=== PATIENT | female | born 1955 ===

== ENCOUNTER 2019-06-11 07:22 | Inpatient (IN) | payer SELFPAY ==
[~2019-06-11] VITALS: Ht 165.1 cm; Wt 77.1 kg
--- NOTE | 2019-06-11 07:32 | Emergency Room Report ---
History of Present Illness General Chief Complaint: Altered Level of Consciousness Source: EMS Present Illness HPI Please note history limited to patient's altered mental status 63-year-old female, unknown past medical history, unknown surgical history, presents with altered mental status unknown start time, unknown aggravating or alleviating factors, patient was found sitting outside a motel, patient arousable, answers some questions but otherwise gives no real history, review of systems cannot be obtained secondary to patient's altered mental status. Allergies: Coded Allergies: UNABLE TO ASSESS (Unverified , 06/11/19) Patient History Limited by: medical condition - Altered mental status Past Medical History: see triage record Past Surgical History: unable to obtain Pertinent Family History: unable to obtain Social History Narrative When asked if she does alcohol drugs or tobacco she denies, however patient is currently altered Reviewed Nursing Documentation: PMH: Agreed; PSxH: Agreed Nursing Documentation-PMH Past Medical History Deferred: Patient Unconscious Past Medical History: No Stated History Review of Systems All Other Systems: limited - unable to obtain secondary to patient's altered mental status Physical Exam Vital Signs Date Time Temp Pulse Resp B/P (MAP) Pulse Ox O2 Delivery O2 Flow Rate FiO2 06/11/19 07:23 97.9 79 18 142/106 (118) 100 Room Air Sp02 EP Interpretation: reviewed, normal General Appearance: no apparent distress, other - snoring Head: normocephalic, atraumatic Eyes: bilateral eye PERRL, bilateral eye EOMI ENT: uvula midline, moist mucus membranes Neck: supple, thyroid normal, supple/symm/no masses Respiratory: lungs clear, no respiratory distress, no retraction, no accessory muscle use Cardiovascular #1: normal peripheral pulses, regular rate, rhythm, no edema, no gallop, no murmur Gastrointestinal: non tender, soft, no guarding, no rebound Musculoskeletal: normal inspection Neurologic: other - sleeping, moving all 4 extremities Skin: no rash, warm/dry Medical Decision Making Diagnostic Impression: Primary Impression: Altered mental status, unspecified Additional Impression: UTI (urinary tract infection) ER Course 63-year-old female presents with acute altered mental status, unknown if secondary to drugs, infection, will obtain labs, EKG, chest x-ray, CT, is arousable sometimes answers questions, currently snoring, possible intoxication. Low suspicion for stroke, patient is not localizing, able to answer some questions, moving all 4 extremities. Patient with UTI on labs, negative urine tox, will admit patient to Dr. Jackson UTI may be contributing to her ams Laboratory Tests Test 06/11/19 07:40 06/11/19 07:48 06/11/19 08:35 Urine Color Yellow Urine Appearance Slightly cloudy Urine pH 5 (4.5-8.0) Urine Specific [place] 1.025 (1.005-1.035) Urine Protein 2+ (NEGATIVE) H Urine Glucose (UA) Negative (NEGATIVE) Urine Ketones 1+ (NEGATIVE) H Urine Blood Negative (NEGATIVE) Urine Nitrite Positive (NEGATIVE) H Urine Bilirubin Negative (NEGATIVE) Urine Urobilinogen Normal MG/DL (0.0-1.0) Urine Leukocyte Esterase 3+ (NEGATIVE) H Urine RBC 0-2 /HPF (0 - 2) Urine WBC 10-15 /HPF (0 - 2) H Urine Squamous Epithelial Cells Few /LPF (NONE/OCC) Urine Bacteria Moderate /HPF (NONE) H Urine Opiates Screen Negative (NEGATIVE) Urine Barbiturates Screen Negative (NEGATIVE) Phencyclidine (PCP) Screen Negative (NEGATIVE) Urine Amphetamines Screen Negative (NEGATIVE) Urine Benzodiazepines Screen Negative (NEGATIVE) Urine Cocaine Screen Negative (NEGATIVE) Urine Marijuana (THC) Screen Negative (NEGATIVE) Venous Blood pH 7.288 Venous Blood Partial Pressure CO2 60.7 Venous Blood Partial Pressure O2 < 45.3 Venous Blood HCO3 28.4 Venous Blood Total Carbon Dioxide 60.7 Venous Bld O2 Saturation (Measured) Pending Venous Blood Oxygen Saturation 24.3 Venous Blood Base Excess 0.5 Methemoglobin 1.6 Sodium (Blood Gas) Pending White Blood Count 7.2 K/UL (4.8-10.8) Red Blood Count 3.89 M/UL (4.20-5.40) L Hemoglobin 11.2 G/DL (12.0-16.0) L Hematocrit 36.2 % (37.0-47.0) L Mean Corpuscular Volume 93 FL (80-99) Mean Corpuscular Hemoglobin 28.8 PG (27.0-31.0) Mean Corpuscular Hemoglobin Concent 31.0 G/DL (32.0-36.0) L Red Cell Distribution Width 14.0 % (11.6-14.8) Platelet Count 190 K/UL (150-450) Mean Platelet Volume 5.4 FL (6.5-10.1) L Neutrophils (%) (Auto) 65.9 % (45.0-75.0) Lymphocytes (%) (Auto) 28.1 % (20.0-45.0) Monocytes (%) (Auto) 4.8 % (1.0-10.0) Eosinophils (%) (Auto) 0.2 % (0.0-3.0) Basophils (%) (Auto) 1.0 % (0.0-2.0) Sodium Level 142 MMOL/L (136-145) Potassium Level 4.6 MMOL/L (3.5-5.1) Chloride Level 108 MMOL/L (98-107) H Carbon Dioxide Level 26 MMOL/L (21-32) Anion Gap 8 mmol/L (5-15) Blood Urea Nitrogen 11 mg/dL (7-18) Creatinine 1.0 MG/DL (0.55-1.30) Estimate Glomerular Filtration Rate 56.4 mL/min (>60) Glucose Level 91 MG/DL (74-106) Calcium Level 8.8 MG/DL (8.5-10.1) Total Bilirubin 0.4 MG/DL (0.2-1.0) Direct Bilirubin 0.1 MG/DL (0.0-0.3) Aspartate Amino Transferase (AST) 12 U/L (15-37) L Alanine Aminotransferase (ALT) 15 U/L (12-78) Alkaline Phosphatase 102 U/L (46-116) Total Creatine Kinase 66 U/L (26-308) Total Protein 6.3 G/DL (6.4-8.2) L Albumin 3.2 G/DL (3.4-5.0) L Globulin 3.1 g/dL Albumin/Globulin Ratio 1.0 (1.0-2.7) Salicylates Level 4.0 ug/mL (2.8-20) Acetaminophen Level < 2 MCG/ML (10-30) L Serum Alcohol < 3 mg/dL EKG Diagnostic Results EKG Time: 07:30 EP Interpretation: Normal sinus rhythm, rate 70, QTc 473, no acute ST elevations, normal axis Rate: normal Rhythm: NSR ST Segments: no acute changes ASA given to the pt in ED: No Rhythm Strip Diag. Results Rhythm Strip Time: 07:30 EP Interpretation: yes Rate: 71 Rhythm: NSR, no PVC's, no ectopy Chest X-Ray Diagnostic Results Chest X-Ray Diagnostic Results : Chest X-Ray Ordered: Yes # of Views/Limited/Complete: 1 View Indication: Other - ams EP Interpretation: Yes PA Xray: Interpretation reviewed Interpretation: no consolidation, no effusion, no pneumothorax, no acute cardiopulmonary disease Impression: No acute disease Electronically Signed by: Lul Yusuf MD CT/MRI/US Diagnostic Results CT/MRI/US Diagnostic Results : Impression Impression: No acute intracranial bleed, mass effect or edema. Mild atrophy of the brain. Nonspecific white matter hypoattenuation probably due to chronic small vessel disease. Last Vital Signs Date Time Temp Pulse Resp B/P (MAP) Pulse Ox O2 Delivery O2 Flow Rate FiO2 06/11/19 07:23 97.9 79 18 142/106 (118) 100 Room Air Disposition: ADMITTED INPATIENT Condition: Stable Lul Yusuf M.D. Jun 11, 2019 07:32
--- NOTE | 2019-06-11 08:04 | NUR ---
ED Nurse Note: pt brendan ra 60 from [facility] pt aloc . ermd eval done ureine sent pt hard stick unable to draw lab called iv established ivf up infusing.
--- NOTE | 2019-06-11 08:14 | NUR ---
ED Nurse Note: lab at bedside drawing
[2019-06-11 08:18] VITALS: BP 105/91
[2019-06-11 08:21] LABS: APPEARANCE,URINE SLIGHTLY CLOUDY; BILIRUBIN, URINE NEGATIVE (NEGATIVE); GLUCOSE, URINE (UA) NEGATIVE (NEGATIVE); KETONES,URINE 1+ (NEGATIVE); LEUKOCYTE ESTERASE ,URINE 3+ (NEGATIVE); NITRITE,URINE POSITIVE (NEGATIVE); PH,URINE 5 (4.5-8.0); PROTEIN,URINE 2+ (NEGATIVE); UROBILINOGEN,URINE NORMAL MG/DL (0.0-1.0)
[2019-06-11 08:31] LABS: COLOR,URINE YELLOW
[2019-06-11 08:58] LABS: EOSINOPHILS % (AUTO) 0.2 % (0.0-3.0); HEMATOCRIT 36.2 % (37.0-47.0); HEMOGLOBIN 11.2 G/DL (12.0-16.0); LYMPHOCYTES % (AUTO) 28.1 % (20.0-45.0); MEAN CORPUSCULAR VOLUME 93 FL (80-99); MONOCYTES % (AUTO) 4.8 % (1.0-10.0); NEUTROPHILS % (AUTO) 65.9 % (45.0-75.0); PLATELET COUNT 190 K/UL (150-450); RED BLOOD COUNT 3.89 M/UL (4.20-5.40); WHITE BLOOD COUNT 7.2 K/UL (4.8-10.8)
[2019-06-11 09:02] LABS: ANION GAP 8 mmol/L (5-15); BLOOD UREA NITROGEN 11 mg/dL (7-18); CALCIUM 8.8 MG/DL (8.5-10.1); CARBON DIOXIDE 26 MMOL/L (21-32); CHLORIDE 108 MMOL/L (98-107); POTASSIUM 4.6 MMOL/L (3.5-5.1); SODIUM 142 MMOL/L (136-145)
[2019-06-11 09:08] LABS: ALANINE AMINOTRANSFERASE 15 U/L (12-78); ALBUMIN 3.2 G/DL (3.4-5.0); ALKALINE PHOSPHATASE 102 U/L (46-116); ASPARTATE AMINO TRANSFERASE 12 U/L (15-37); BILIRUBIN,DIRECT 0.1 MG/DL (0.0-0.3); BILIRUBIN,TOTAL 0.4 MG/DL (0.2-1.0); CREATINE KINASE 66 U/L (26-308)
--- NOTE | 2019-06-11 09:10 | NUR ---
ED Nurse Note: pt back from imaging abx up infusing
[2019-06-11] MEDS ORDERED: cefTRIAXone 1 GM in NS 55 ML IVPB ONE (09:15)
[2019-06-11 09:18] VITALS: BP 138/93
--- NOTE | 2019-06-11 09:20 | Diagnostic Imaging Report ---
Indication: Altered mental status Technique: Contiguous 5 mm thick transaxial imaging of the head obtained in a Siemens Sensation [address] scanner. Soft tissue and bone windows generated. Automatic Exposure Control was utilized. Total Dose length Product (DLP): 1298.[address] Dose Index Volume (CTDIvol): 70.38 mGy Comparison: none Findings: There is mild prominence of the ventricles, basal cisterns, and cerebral sulci consistent with atrophy. Mild, nonspecific, white matter hypoattenuation is noted throughout the brain consistent with chronic small vessel disease. There is no midline shift, edema, acute hemorrhage, mass effect, or abnormal extra-axial fluid collections. Bones are unremarkable. Impression: No acute intracranial bleed, mass effect or edema. Mild atrophy of the brain. Nonspecific white matter hypoattenuation probably due to chronic small vessel disease. The CT scanner at [facility] is accredited by the [employer] and the scans are performed using dose optimization techniques as appropriate to a performed exam including Automatic Exposure control.
[2019-06-11] MEDS ORDERED: UNOBMED (11:00)
[2019-06-11 11:02] VITALS: BP 156/93
--- NOTE | 2019-06-11 11:07 | NUR ---
ED Nurse Note: csalled floor to give report RN unavailable will try again
--- NOTE | 2019-06-11 11:40 | NUR ---
NURSE NOTES: Received patient via gurney from Emergency Room. Report given by RAMIRO Costello. Patient is resting in bed, Alert and orriente x1 ( she mentioned her name is Gisela Wren and she is 64 years old) but not sure she is right. Patient is in stable condition. No mason and symptoms of acute distress at this time. Breathing is unlabored in room air. Bed is in lowest position with two side rails up, brakes engaged . Call light and bed side table are within reach. Bed alarm needs to be reset. Unable to collect any information to do physical assessment due to Altered Mental status. Will continue to follow plan of care.
--- NOTE | 2019-06-11 11:52 | Diagnostic Imaging Report ---
Indication: Dyspnea Comparison: None A single view chest radiograph was obtained. Findings: Heart is mildly enlarged. Pulmonary vascularity is within normal limits. Bones are osteopenic. IMPRESSION: No acute disease
[2019-06-11 12:00] VITALS: BP 156/109
[2019-06-11] MEDS ORDERED: D5NS 1,000 ML IV SCH (14:30)
--- NOTE | 2019-06-11 14:44 | NUR ---
CASE MANAGEMENT: INITIAL REVIEW 63 YO F NOHEMI FROM [facility] CC: ALOC PMHx: UNABLE TO OBTAIN SI:AMS. UTI. T 97.9 HR 79 RR 18 B/P 142/106 SATS 100% ON RA CL 108 AST 12 U TOX (-PHENYTOIN <0.5 OTHERWISE NEG) IS: NS BOLUS X1 CEFTRIAXONE IV X1 CT HEAD Impression: No acute intracranial bleed, mass effect or edema. Mild atrophy of the brain. Nonspecific white matter hypoattenuation probably due to chronic small vessel disease. PATIENT ADMITTED TO TELE 06/11/2019 @ [facility] DCP: PATIENT TO BE DISCHARGED TO APPROPRIATE LOCATION ONCE MEDICALLY CLEARED PLAN OF CARE: 2D ECHO CAROTID VERTEBRAL DUPLEX SZ PRECAUTIONS NEURO CHECKS Addendum: 06/11/19 at 1451 by Kitty Montoya CM INTERQUAL MET
--- NOTE | 2019-06-11 15:35 | Cardiology Report ---
APPROVED REPORT EXAM: Two-dimensional and M-mode echocardiogram with Doppler and color Doppler. INDICATION Chest Pain M-Mode DIMENSIONS IVSd1.2 (0.7-1.1cm)Left Atrium (MM)2.5 (1.6-4.0cm) LVDd4.4 (3.5-5.6cm)Aortic Root2.6 (2.0-3.7cm) PWd1.0 (0.7-1.1cm)Aortic Cusp Exc.1.9 (1.5-2.0cm) LVDs2.8 (2.5-4.0cm) PWs1.4 cm Normal left ventricular chamber size, systolic function and wall motion. Left ventricular ejection fraction estimated to be 60 %. Mild left ventricular hypertrophy. No evidence of pericardial effusion. All other cardiac chamber sizes are within normal limits. Focal aortic valve sclerosis with adequate cusp excursion. Thickened mitral valve leaflets with normal excursion. Mild mitral annulus and aortic root calcification. Pulmonic valve not well visualized. Normal tricuspid valve structure. IVC dilated at 2.5 cm with physiological collapse. A color flow and spectral Doppler study was performed and revealed: No aortic regurgitation. Mild mitral regurgitation. Mitral diastolic velocities suggest mild left ventricular diastolic dysfunction (Grade I). Trace tricuspid regurgitation. Tricuspid systolic velocities suggests peak right ventricular systolic pressure of 33 mmHg. Trace pulmonic regurgitation present.
--- NOTE | 2019-06-11 15:48 | Cardiology Report ---
APPROVED REPORT EKG Measurement Heart [id number] Normal sinus rhythm Possible Left atrial enlargement Borderline ECG
[2019-06-11 16:00] VITALS: BP 142/92
--- NOTE | 2019-06-11 16:01 | Neurology Progress Note ---
Interim History Interim History Interim History 63-year-old female, unknown past medical history, unknown surgical history, presents with altered mental status unknown start time, unknown aggravating or alleviating factors, patient was found sitting outside a motel, patient arousable, answers some questions but otherwise gives no real history, review of systems cannot be obtained secondary to patient's altered mental status. Now improved, can tell me her name and where she is, non focal uti + unlikely stroke Objective Physical Exam Last Vital Signs Date Time Temp Pulse Resp B/P (MAP) Pulse Ox O2 Delivery O2 Flow Rate FiO2 06/11/19 12:08 Room Air 06/11/19 12:00 97.3 76 18 156/109 (125) 95 Laboratory Tests Test 06/11/19 07:40 06/11/19 07:48 06/11/19 08:35 Urine Color Yellow Urine Appearance Slightly cloudy Urine pH 5 (4.5-8.0) Urine Specific [place] 1.025 (1.005-1.035) Urine Protein 2+ (NEGATIVE) H Urine Glucose (UA) Negative (NEGATIVE) Urine Ketones 1+ (NEGATIVE) H Urine Blood Negative (NEGATIVE) Urine Nitrite Positive (NEGATIVE) H Urine Bilirubin Negative (NEGATIVE) Urine Urobilinogen Normal MG/DL (0.0-1.0) Urine Leukocyte Esterase 3+ (NEGATIVE) H Urine RBC 0-2 /HPF (0 - 2) Urine WBC 10-15 /HPF (0 - 2) H Urine Squamous Epithelial Cells Few /LPF (NONE/OCC) Urine Bacteria Moderate /HPF (NONE) H Urine Opiates Screen Negative (NEGATIVE) Urine Barbiturates Screen Negative (NEGATIVE) Phencyclidine (PCP) Screen Negative (NEGATIVE) Urine Amphetamines Screen Negative (NEGATIVE) Urine Benzodiazepines Screen Negative (NEGATIVE) Urine Cocaine Screen Negative (NEGATIVE) Urine Marijuana (THC) Screen Negative (NEGATIVE) Venous Blood pH 7.288 Venous Blood Partial Pressure CO2 60.7 Venous Blood Partial Pressure O2 < 45.3 Venous Blood HCO3 28.4 Venous Blood Total Carbon Dioxide 60.7 Venous Bld O2 Saturation (Measured) Pending Venous Blood Oxygen Saturation 24.3 Venous Blood Base Excess 0.5 Methemoglobin 1.6 Sodium (Blood Gas) Pending White Blood Count 7.2 K/UL (4.8-10.8) Red Blood Count 3.89 M/UL (4.20-5.40) L Hemoglobin 11.2 G/DL (12.0-16.0) L Hematocrit 36.2 % (37.0-47.0) L Mean Corpuscular Volume 93 FL (80-99) Mean Corpuscular Hemoglobin 28.8 PG (27.0-31.0) Mean Corpuscular Hemoglobin Concent 31.0 G/DL (32.0-36.0) L Red Cell Distribution Width 14.0 % (11.6-14.8) Platelet Count 190 K/UL (150-450) Mean Platelet Volume 5.4 FL (6.5-10.1) L Neutrophils (%) (Auto) 65.9 % (45.0-75.0) Lymphocytes (%) (Auto) 28.1 % (20.0-45.0) Monocytes (%) (Auto) 4.8 % (1.0-10.0) Eosinophils (%) (Auto) 0.2 % (0.0-3.0) Basophils (%) (Auto) 1.0 % (0.0-2.0) Sodium Level 142 MMOL/L (136-145) Potassium Level 4.6 MMOL/L (3.5-5.1) Chloride Level 108 MMOL/L (98-107) H Carbon Dioxide Level 26 MMOL/L (21-32) Anion Gap 8 mmol/L (5-15) Blood Urea Nitrogen 11 mg/dL (7-18) Creatinine 1.0 MG/DL (0.55-1.30) Estimat Glomerular Filtration Rate 56.4 mL/min (>60) Glucose Level 91 MG/DL (74-106) Calcium Level 8.8 MG/DL (8.5-10.1) Total Bilirubin 0.4 MG/DL (0.2-1.0) Direct Bilirubin 0.1 MG/DL (0.0-0.3) Aspartate Amino Transf (AST/SGOT) 12 U/L (15-37) L Alanine Aminotransferase (ALT/SGPT) 15 U/L (12-78) Alkaline Phosphatase 102 U/L (46-116) Total Creatine Kinase 66 U/L (26-308) Total Protein 6.3 G/DL (6.4-8.2) L Albumin 3.2 G/DL (3.4-5.0) L Globulin 3.1 g/dL Albumin/Globulin Ratio 1.0 (1.0-2.7) Salicylates Level 4.0 ug/mL (2.8-20) Acetaminophen Level < 2 MCG/ML (10-30) L Phenytoin (Dilantin) Level < 0.5 ug/mL (10-20) L Levetiracetam (Keppra) Level Pending Serum Alcohol < 3 mg/dL Head: normocophalic Neck: no rigidity EENT: benign Neurologic Exam Mental Status: awake, alert, normal cognition Speech: normal speech Language: normal language Cranial Nerve II: visual francis Cranial Nerves III, IV, : EOMI Motor System: strength 5/5 Coordination: normal finger to nose bilaterally Objective nihss of 0 unlikely stroke cc time 35 min Impression/Recommendations Problems: (1) UTI (urinary tract infection) (2) Altered mental status, unspecified Diagnostic Impression monitor neuro status no need for stroke work up atb per primary Lul Rahman MD Jun 11, 2019 16:01
[2019-06-11] MEDS ORDERED: traMADol 50mg tab ORAL PRN (18:30)
--- NOTE | 2019-06-11 18:50 | NUR ---
NURSE NOTES: Patient left the hospital against medical advise. I explained to patient about the risks and consequences involve in leaving, and the benefits of continued treatment. Patient stated she is homeless and she left her belongings in the motel. On admission, patient was confused and she couldn't be able to provide any information, however after 3 hours she told me her name is Gisela Reynoso and 64 years old. patient remembered her primary physician and all the medications she was taking at home. Patient decided to leave the hospital after dinner to take care of her business. RN explained to patient that our case manger can help her to find a placement after discharge, but she wanted to leave AMA. Patient DC'd from IV and heart monitor. ID band removed (but she took it with herself). Doctor , career technical supervisor and charge nurse aware.
[2019-06-11] MEDS ORDERED: Heparin 5000 units/ml inj SUBQ SCH (21:00)
--- NOTE | 2019-06-12 21:43 | Discharge Summary ---
Discharge Summary Discharge Summary _ DATE OF ADMISSION: 06/11/2019 DATE OF DISCHARGE: 06/11/2019 Patient left AGAINST MEDICAL ADVICE REASON FOR ADMISSION: 63 years old female with unknown past medical history, presented with altered mental status. Patient was found sitting outside the motel. Upon evaluation patient was arousable , able to answer some questions, but otherwise provided no real history. Urinalysis revealed evidence of urinary tract infection. Urine toxicology screen was negative. Serum salicylate acetaminophen,, and alcohol all negative. No leukocytosis. Hemoglobin 11.2, hematocrit 36.2. Platelets 190. Stable electrolytes and renal parameters. Glucose 91. Stable LFT. Albumin 3.2. EKG revealed normal sinus rhythm, no acute ischemic changes. Chest x-ray revealed no acute cardiopulmonary pathology. CT of the head revealed no acute intracranial bleeding, mass-effect or edema. Patient admitted with altered mental status and urinary tract infection. CONSULTANTS: neurologist Dr. Rahman [facility]SE: Patient admitted to telemetry floor. Echocardiogram revealed preserved ejection fraction of 60% with mild left ventricular hypertrophy. No evidence of pericardial effusion. No evidence of wall motion abnormality. Right ventricular systolic pressure of 33. DVT prophylaxis provided. Patient started on antibiotic for urinary tract infection. Urine culture at the time of this dictation showed gram-negative rods.. Neurologist seen and evaluated patient. Upon evaluation by neurologist patient already was awake and alert and able to answer questions, no focal deficit. She was able to state her name and where she was. Neurologist stated that altered mental status was probably due to urinary tract infection. No need for stroke work-up. No focal deficit noted, unlikely stroke. Patient decided to leave AGAINST MEDICAL ADVICE. Patient stated that she was homeless and left her belongings in the motel. She was able to state her real name /Gisela Reynoso and her age/ 64 years old. Patient remembered her primary physician and all the medications that she was taking at home. Patient decided to leave AGAINST MEDICAL ADVICE after eating dinner to take care of her belongings. Patient was explained that disability case manager can help with findings of placement after discharge, but she decided to sign AGAINST MEDICAL ADVICE. The risks and consequences of signing AGAINST MEDICAL ADVICE were discussed with patient in detail. Patient verbalized understanding, nevertheless signed AMA form and left. FINAL DIAGNOSES: Altered level of consciousness- resolved , managed on coming back tomorrow possibly due to UTI Urinary tract infection I have been assigned to dictate discharge summary for this account. I was not involved in the patient's management. Yadira Hazel NP Jun 12, 2019 21:43
== END 2019-06-11 18:50 | disposition left against medical advice (07) | DRG 690 ==
LOC: EDBD 07:22 → EMR 07:58 → EDBEDREQSVC 09:34 → 2E 10:07 → EDBEDREQ 11:18 → 2E 12:36
DX: N39.0 Urinary tract infection, site not specified (principal); R41.82 Altered mental status, unspecified; Z59.0 Homelessness
CPT/HCPCS: 36415; 70450; 71045; 80053; 80185; 80299; 80307; 80329; 81003; 82248; 82550; 85025; 87081; 87086; 87181; 93005; 93306; 93880; 96361; 96365; 99285